=== PATIENT | female | born 1960 | race Caucasian/White ===

== ENCOUNTER 2025-04-04 12:43 | Emergency (ER) | payer OTHER, SELFPAY ==
[2025-04-04 12:51] VITALS: BP 141/81
[2025-04-04 13:14] LABS: Hematocrit 41.2 % (37.0-47.0); Hemoglobin 14.4 g/dL (12.0-16.0); Mean Corp Hgb Conc. 35.0 g/dL (33.0-37.0); Mean Corpuscular Volume 83.9 fL (81.0-99.0); Nucleated Red Blood Cells % 0 %; Platelet Count 258 10^3/uL (130-400); Red Cell Dist. Width 13.6 % (11.5-14.5)
[2025-04-04 13:29] LABS: ALT (SGPT) 21 U/L (0-35); AST (SGOT) 21 U/L (14-36); Albumin 4.6 g/dl (3.5-5.0); Alkaline Phosphatase 80 U/L (38-126); Blood Urea Nitrogen 19 mg/dl (7-17); Calcium 9.4 mg/dl (8.4-10.2); Carbon Dioxide 24 mmol/L (22-30); Chloride 104 mmol/L (98-107); Glucose 119 mg/dl (70-99); Lipase 85 U/L (23-300); Potassium 4.4 mmol/L (3.5-5.1); Sodium 133 mmol/L (135-145); Total Protein 7.8 g/dl (6.3-8.2); eGFR > 60.00
[2025-04-04 13:37] LABS: Troponin I < 0.012 ng/ml
--- NOTE | 2025-04-04 15:06 | ED.GENMED ---
History of Present Illness
General
Chief Complaint: Cardiac Symptoms
Source: patient
Exam Limitations: none
Time Seen by Provider: 04/04/25 15:05
History of Present Illness
History of Present Illness:
65yoF with a history of obesity and migraines presenting for evaluation of chest pain. Patient woke up this morning around 6am not feeling well. She reports nausea, vomiting, and chest discomfort. She vomited 4 times this morning. Her chest
discomfort worsens right before vomiting and improves slightly afterwards. She describes a pressure sensation that radiates throughout her chest which is currently rated as a 4/10 in severity. She denies any shortness of breath, pleuritic pain,
dizziness, syncope, diaphoresis. Patient ate dinner at a restaurant last night. No personal or family history of heart disease. No tobacco use.
Phy Exam
General Physical Exam
General Presentation: well appearing and no apparent distress
General Skin: warm and dry
General Habitus: normal
General Mental: alert
ENT Exam
ENT Exam: normocephalic
Cardiovascular Exam
Cardiovascular Exam: regular rate/rhythm, no edema, no murmur and normal peripheral pulses (2+ radial and DP pulses bilaterally)
Pulmonary Exam
Pulmonary Exam: lungs clear, no respiratory distress, no rales, no crackles, no rhonchi and other (+Tenderness to chest wall bilaterally)
Neurological Exam
Neurological Exam: alert
Barb Coma Scale
Eye Opening: Spontaneous
Verbal Response: Oriented
Motor Response: Obeys Commands
GCS Total Score: 15
Skin Exam
Skin Exam: normal color and warm/dry
Psychiatric Exam
Psychiatric Exam: normal mood/affect
Course
Orders/Labs/Results
Orders:
Orders
04/04/25 12:44
Electrocardiogram (*1) Urgent
Reason for Study: Chest Pain
EKG- Treatment ONCE
04/04/25 13:04
Complete Blood Count/With Diff Urgent
Comprehensive Metabolic Panel Urgent
Lipase Urgent
Troponin I Urgent
04/04/25 15:29
Electrocardiogram (*1) Urgent
Reason for Study: Chest Pain
Cardiac Monitoring- Treatment ONCE
EKG- Treatment ONCE
CR Chest - 2 Views Urgent
Comment:
Reason For Exam: CP
04/04/25 16:03
Troponin I Urgent
Abnormal Lab Results
04/04/25
13:04
WBC 12.4 H 10^3/uL
(4.8-10.8)
MPV 11.3 H fL
(7.4-10.4)
Absolute Neuts (auto) 8.6 H 10^3/uL
(1.4-6.5)
Absolute Monos (auto) 0.8 H 10^3/uL
(0.1-0.6)
Sodium 133 L mmol/L
(135-145)
BUN 19 H mg/dl
(7-17)
Glucose 119 H mg/dl
(70-99)
04/04/25 13:04
04/04/25 13:04
Vital Signs
Initial and Last Documented VS:
Initial Vital Signs
Temp Pulse Resp BP Pulse Ox
98.3 F 76 16 141/81 96
04/04/25 12:51 04/04/25 12:51 04/04/25 12:51 04/04/25 12:51 04/04/25 12:51
Last Documented Vital Signs
Temp Pulse Resp BP Pulse Ox
97.9 F 66 13 133/78 99
04/04/25 16:43 04/04/25 16:00 04/04/25 16:00 04/04/25 15:46 04/04/25 16:00
MDM/Problems Addressed
Differential Diagnosis Includes:
65yoF here with chest pain. Woke up with n/v this morning. C/o pressure throughout chest. Reproducible chest wall tenderness on exam. VSS. She is well-appearing no distress. Differential diagnosis includes but is not limited to:
Costochondritis/musculoskeletal, pleurisy, esophagitis, Boerhaave syndrome, ACS
Initial ED plan: Workup initiated in triage. EKG shows subtle T wave changes in lateral leads. Troponin undetectable. Will check delta troponin/EKG and CXR.
*Pulse Oximetry
SaO2: 96
Oxygen Mode of Delivery: Room air
Patient hypoxic: no
*EKG
Interpreted by ED Provider?: Yes
EKG Intrepretation Date: 04/04/25
Heart Rate: 67
Rate: normal
Rhythm: sinus
[place]: normal axis
Interval: normal interval
QRS Pattern: normal QRS
Ischemia: other (nonspecific T wave changes in lateral leads)
*Critical Care Note
Total Time (30-74mins, 75-104mins- exclusive of procedures): Not Applicable
Update Note
Update Note:
Repeat EKG looks improved and troponin remains undetectable. Chest x-ray clear. Patient feeling improved on reassessment. She is stable for discharge. Advised close follow-up with PCP and strict ED return precautions reviewed. Patient in
agreement with plan and she left in stable condition.
ED Attending Note
-
Portions of this chart may have been created with voice recognition software.� Occasional wrong word or��sound alike� substitutions may have occurred due to the inherent limitations of voice recognition software.
Discharge Plan
Departure
Patient Disposition: Home (Routine Discharge)
Date of Disposition: 04/04/25
Time of Disposition: 17:23
Patient with high blood pressure during this ER visit?: No
Discharge Problem:
Chest pain
Instructions: Chest Pain (DC)
Prescriptions:
No Action
ciprofloxacin HCl 500 mg tablet
500 mg PO BID 7 Days Qty: 14 0RF
metronidazole 500 mg tablet
500 mg PO TID 7 Days Qty: 21 0RF
Referrals:
Catrachito Thornton MD [Family Provider]
Activity Restrictions/Additional Instructions:
Please call your family doctor tomorrow to schedule a follow-up appointment. Return to the ER immediately with any new or worsening symptoms.
Interventions
Interventions:
*Risk Screen - Suicide Last Done: 04/04/25 15:43
*General Assessment Last Done: 04/04/25 15:42
*Neglect/Abuse Screening Last Done: 04/04/25 15:43
*ED- Fall Risk Assessment Last Done: 04/04/25 15:43
*ED COVID-19 Vaccine History Last Done: 04/04/25 15:43
*ED Influenza Vaccine History Last Done: 04/04/25 15:43
YL-Ioldfg-Vvnugeycyj Assessment Last Done: 04/04/25 15:47
ED- Cardiac Assessment Last Done: 04/04/25 15:44
ED- Pulmonary Assessment Last Done: 04/04/25 15:45
Discharge Date and Time
Discharge Date/Time: 04/04/25 17:44
Print Language: DIVEHI
[2025-04-04 15:41] VITALS: BMI 37.1
[2025-04-04 15:46] VITALS: BP 133/78
[2025-04-04 17:20] LABS: Troponin I < 0.012 ng/ml
== END 2025-04-04 17:44 | disposition home or self-care (01) ==
LOC: EMR 12:43
PROVIDERS: Emergency Medicine; Physician Assistant; EMERGENCY PHYSICIAN Emergency Medicine; FAMILY PHYSICIAN Internal Medicine
DX: R07.89 Other chest pain (principal); R11.2 Nausea with vomiting, unspecified; E66.9 Obesity, unspecified; G43.909 Migraine, unspecified, not intractable, without status migrainosus; Z91.041 Radiographic dye allergy status; Z88.0 Allergy status to penicillin; Z91.013 Allergy to seafood; Z91.018 Allergy to other foods
CPT/HCPCS: 99283; 71046; 80053; 83690; 84484; 85025; 93005

== ENCOUNTER 2025-04-05 23:23 | Observation (INO) | payer OTHER, SELFPAY ==
[2025-04-05 17:50] VITALS: BP 163/90
[2025-04-05 18:16] LABS: Hematocrit 42.3 % (37.0-47.0); Hemoglobin 14.9 g/dL (12.0-16.0); Mean Corp Hgb Conc. 35.2 g/dL (33.0-37.0); Mean Corpuscular Volume 82.9 fL (81.0-99.0); Nucleated Red Blood Cells % 0 %; Platelet Count 271 10^3/uL (130-400); Red Cell Dist. Width 13.6 % (11.5-14.5)
[2025-04-05 18:32] LABS: ALT (SGPT) 21 U/L (0-35); AST (SGOT) 19 U/L (14-36); Albumin 5.2 g/dl (3.5-5.0); Alkaline Phosphatase 90 U/L (38-126); Blood Urea Nitrogen 22 mg/dl (7-17); Calcium 10.1 mg/dl (8.4-10.2); Carbon Dioxide 24 mmol/L (22-30); Chloride 103 mmol/L (98-107); Glucose 132 mg/dl (70-99); Lipase 87 U/L (23-300); Potassium 4.1 mmol/L (3.5-5.1); Sodium 140 mmol/L (135-145); Total Protein 8.8 g/dl (6.3-8.2); eGFR > 60.00
[2025-04-05 19:44] VITALS: BMI 35.8
--- NOTE | 2025-04-05 19:49 | ED.GENMED ---
History of Present Illness
General
Chief Complaint: Abdominal Symptoms
Source: patient and records
Exam Limitations: none
Time Seen by Provider: 04/05/25 19:22
Nursing documentation reviewed up to this point in time: agreed with
History of Present Illness
History of Present Illness:
65 female returns abdominal pain nausea vomiting seen here yesterday with nausea vomiting chest pain discharged home no fever or chills, no prior abdominal surgeries, saw her PCP with vomiting referred here, states she feels thirsty some pain in her
mid upper abdomen, feels like she has a migraine headache which she gets frequently she seeks Botox, was on a GLP-1 previously not recently
Past History
Past History
ED Past Surgical History: Negative Appendectomy, Bowel resection or Cardiac
Social History
Tobacco: Non-smoker
Alcohol: None
Drug: None
Personal:
Living: with family
Employment: Employed
Review of Systems
Review of Systems
All Other Systems: Not applicable
Constitutional: Denies fever or fatigue
EENT: Reports no symptoms
Respiratory: Reports no symptoms
Cardiac: Denies chest pain
ABD/GI: Reports abdominal pain, nausea and vomiting; Denies diarrhea
: Reports no symptoms
Musculoskeletal: Reports no symptoms
Neurological: Reports headache
Endocrine: Reports no symptoms
Phy Exam
Physical Exam
Physical Exam:
Physical Exam
General: 65 female looks uncomfortable
Neck: Dry lip
Heart: s1/s2 regular rate and rhythm, no murmur. equal radial pulses.
Lungs: no acute respiratory distress. clear bilaterally
Abdomen tender in the epigastrium left greater than right lower
Neuro: alert and oriented. no focal neurological deficits
Skin: no rash
Psychiatric: well kept. interactive and cooperative
Extremities: no edema. no calf tenderness. negative homans. good distal pulses
Course
Orders/Labs/Results
Orders:
Orders
04/05/25 18:03
CMP [Comprehensive Metabolic Panel] Urgent
Complete Blood Count/With Diff Urgent
Lipase Urgent
04/05/25 19:43
Electrocardiogram (*1) Urgent
Reason for Study: Abdominal Pain
EKG- Treatment ONCE
HYDROmorphone [Dilaudid] 1 mg IV NOW STA
Ondansetron Injectable [Zofran] 4 mg IV NOW STA
US Abdomen Complete/Upper Urgent
Comment:
Reason For Exam: paoin vomitng
04/05/25 19:44
0.9% Sodium Chloride 1000 ml [Nss] 1,000 ml IV BOLUS
04/05/25 19:52
Iohexol [Omnipaque] See Protocol PO NOW STA
04/05/25 19:55
Troponin I Urgent
04/05/25 20:02
CT Abd/pelvis W Iv Cont Urgent
Comment:
Reason For Exam: pain vomitign-getting steroid prep
Diphenhydramine [Benadryl] 50 mg IV NOW STA
Hydrocortisone Sod Succinate [Solu-Cortef] 100 mg IV NOW STA
04/05/25 22:26
0.9% Sodium Chloride 1000 ml [Nss] 1,000 ml IV BOLUS
04/05/25 22:54
LevoFLOXacin 500 MG/100 ML [Levaquin] 500 mg in 100 ml IV NOW
04/05/25 22:55
MetroNIDAZOLE 500 MG/100 ML [Flagyl 500 mg] 100 ml IV NOW
04/05/25 22:58
MetroNIDAZOLE 500 MG/100 ML [Flagyl 500 mg] 100 ml IV NOW
Sulfamethox./Trimethoprim Ds [Bactrim Ds 800 mg/160 mg] 1 tablet PO NOW STA
Abnormal Lab Results
04/05/25
18:03
WBC 16.6 H 10^3/uL
(4.8-10.8)
MPV 11.3 H fL
(7.4-10.4)
Abs Immat Gran (auto) 0.1 H 10^3/uL
(0-0.05)
Absolute Neuts (auto) 13.2 H 10^3/uL
(1.4-6.5)
Absolute Monos (auto) 1.0 H 10^3/uL
(0.1-0.6)
Neutrophils % 79.6 H %
(42.2-75.2)
Lymphocytes % 13.6 L %
(20.5-51.1)
BUN 22 H mg/dl
(7-17)
Glucose 132 H mg/dl
(70-99)
Total Bilirubin 1.9 H mg/dl
(0.2-1.3)
Total Protein 8.8 H g/dl
(6.3-8.2)
Albumin 5.2 H g/dl
(3.5-5.0)
04/05/25 18:03
04/05/25 18:03
Vital Signs
Initial and Last Documented VS:
Initial Vital Signs
Temp Pulse Resp BP Pulse Ox
97.9 F 88 16 163/90 98
04/05/25 17:50 04/05/25 17:50 04/05/25 17:50 04/05/25 17:50 04/05/25 17:50
Last Documented Vital Signs
Temp Pulse Resp BP Pulse Ox
98.0 F 58 18 106/66 97
04/05/25 21:11 04/05/25 21:11 04/05/25 21:11 04/05/25 21:11 04/05/25 21:11
MDM/Problems Addressed
Differential Diagnosis Includes:
Gastritis, biliary colic pancreatitis appendicitis less likely obstruction
MDM/Problems Addressed:
Abdominal pain
Chronic conditions affecting care:
Migraine
Acute Exacerbation and/or Progression of Chronic Illness:
Migraine
*Radiology
Radiology exam reviewed: preliminary read by ED provider
*Pulse Oximetry
SaO2: 98
Oxygen Mode of Delivery: Room air
Patient hypoxic: no
*Critical Care Note
Total Time (30-74mins, 75-104mins- exclusive of procedures): Not Applicable
ED Attending Note
-
Portions of this chart may have been created with voice recognition software.� Occasional wrong word or��sound alike� substitutions may have occurred due to the inherent limitations of voice recognition software.
Discharge Plan
Departure
Patient Disposition: Admit
Date of Disposition: 04/05/25
Time of Disposition: 22:58
Admit to: Med/Surg
Presentation/result/management discussed w/ accepting MD/DO: Hospitalist
Patient with high blood pressure during this ER visit?: No
Condition: Good
Discharge Problem:
Diverticulitis
Prescriptions:
No Action
ciprofloxacin HCl 500 mg tablet
500 mg PO BID 7 Days Qty: 14 0RF
metronidazole 500 mg tablet
500 mg PO TID 7 Days Qty: 21 0RF
Referrals:
Catrachito Thornton MD [Family Provider]
Interventions
Interventions:
*Risk Screen - Suicide Last Done: 04/05/25 17:50
*General Assessment Last Done: 04/05/25 20:26
*Neglect/Abuse Screening Last Done: 04/05/25 17:50
*ED- Fall Risk Assessment Last Done: 04/05/25 20:26
*ED COVID-19 Vaccine History Last Done: 04/05/25 20:26
*ED Influenza Vaccine History Last Done: 04/05/25 20:26
XI-Tjpwtj-Iztmlbaixq Assessment Last Done: 04/05/25 20:26
Discharge Date and Time
Print Language: AZERI
[2025-04-05] MEDS: NSS 1000 IV ×2 (19:56→22:30)
[2025-04-05] MEDS: ZOFRAN 4 MG IV (20:07)
[2025-04-05] MEDS: DILAUDID 1 MG IV (20:09)
[2025-04-05] MEDS: BENADRYL 50 MG IV (20:11)
[2025-04-05] MEDS: SOLU-CORTEF 100 MG IV (20:15)
[2025-04-05 20:35] LABS: Troponin I < 0.012 ng/ml
[2025-04-05 21:05] VITALS: BP 106/66
[2025-04-05 21:11] VITALS: BP 106/66
--- NOTE | 2025-04-05 22:55 | W.PN.UPDATE ---
Update Note
Progress Note Update
This note serves as an addendum to the H&P by legal officer NANDINI�
Jolene SUNSHINE
HPI
65F return visit to ER with abdominal pain nausea vomiting
She was seen here yesterday with nausea vomiting chest pain discharged home
- HX uncomplicated diverticulitis treated with ABx 1 yr ago
- no fever or chills
- no prior abdominal surgeries
- saw her PCP with vomiting referred here
- some pain in her mid upper abdomen
- was on a GLP-1 previously not recently
Relevant VS
Temp Pulse Resp BP Pulse Ox
98.0 F 58 18 106/66 97
04/05/25 21:11 04/05/25 21:11 04/05/25 21:11 04/05/25 21:11 04/05/25 21:11
PE
Gen: Class II Obesity BMI 35
HEENT: anicteric
Neck: supple
Lungs: CTA
Cor:RRR S1 S2
Abdomen:�LLQ tenderness on deep palpation
Psych; anxious
Relevant data�
04/05/25
18:03
WBC 16.6 H
BUN 22 H
Creatinine 0.9
eGFR > 60.00
Total Bilirubin 1.[address]/pelvis W Iv Cont
- Findings suspicious for minor proximal sigmoid diverticulitis.
No perforation or abscess.
- Mild hepatomegaly with mild fatty infiltration.
- The appendix is normal.
- No obstructive uropathy.
No prior hospitalist admission:
ASSESSMENT & PLAN
Acute uncomplicated proximal sigmoid diverticulitis.
Second visit to ER
First episode of diverticulitis 1yr ago
HX PCN allergy
- No perforation
- IV LVQ and Flagyl
- NPO except sips
- PRN Analgesia and anti emetics
DVT Px: SCD
Full code
IP MS
--- NOTE | 2025-04-05 23:17 | HPS.HSE ---
Family Physician
-
Family Physician: Catrachito Thornton
Chief Complaint
-
Persistent Vomiting
History of Present Illness
Patient is a 65 y/o female past medical history of migraine headaches who presents with persistent vomiting. Patient reports she developed vomiting yesterday morning. She reports some left lower quadrant abdominal pain which resolved after several
episodes of vomiting. She was seen at the [facility] ED yesterday due to complaints of chest heaviness associated with the vomiting. She had a negative cardiac work-up and was discharged home. She attempted to eat last night and developed recurrent
vomiting. She saw her PCP earlier today who referred her to the emergency department for evaluation. Patient denies any fevers, sweats or chills.
Medical History
Past Medical History
Past Medical History: Reports Other
Additional Past Medical History:
Migraine Headache
Past Surgical History: Reports Other
Additional Past Surgical History:
Right Ankle ORIF with subsequent hardware removal
Social History
Tobacco: Non-smoker
Alcohol: Occasional (Social)
Family History
Family History: Not pertinent
Allergies / Home Medications
Allergies reflects when Allergies were last updated in [facility].
Home Medications with original date entered in [facility]
Allergy/Medication List:
Allergies
Allergy/AdvReac Type Severity Reaction Status Date / Time
Iodinated Contrast Media Allergy has not Verified 04/04/25 12:54
had, but
she lists
it due to
shrimp
allergy
Penicillins Allergy Unknown Verified 04/04/25 12:53
shrimp Allergy Hives Verified 04/04/25 12:54
strawberry Allergy Unknown Verified 04/04/25 12:53
Home Medications
No Meds [No Current Medications] 04/05/25
Review of Systems
-
History Source: Patient
A 12 point ROS was completed and negative except as noted: Yes
Constitutional: Denies Fever or Chills
Respiratory: Denies Cough or Trouble Breathing
Cardiac: Reports Chest Pain; Denies Palpitations
Abdomen/GI: Reports See HPI, Abdominal Pain, Nausea and Vomiting; Denies Diarrhea or Constipated (Last bowel movement yesterday morning)
Physical Exam
Vital Signs
Vital Signs
Temp Pulse Resp BP Pulse Ox
98.0 F 58 18 106/66 97
04/05/25 21:11 04/05/25 21:11 04/05/25 21:11 04/05/25 21:11 04/05/25 21:11
Physical Exam
General: Comfortable and Conversant
HEENT: Anicteric and Moist mucous membranes
Respiratory: Clear and Non Labored Respirations
Cardiac: S1/S2 and Regular Rhythm; No Tachycardia
GI: Soft and Tender (LLQ tenderness without rebound or guarding)
Rectal: Other
Genito-urinary: Clear Urine
Musculoskeletal: No Clubbing, No Cyanosis and No Edema
Skin: Warm and Dry
Neuro: Awake, Alert, Oriented and Nonfocal/grossly intact
Psych: Calm
Laboratory Results
-
04/05/25 18:03
04/05/25 18:03
Laboratory Results
Total Bilirubin 1.9 mg/dl (0.2-1.3) H 04/05/25 18:03
AST 19 U/L (14-36) 04/05/25 18:03
ALT 21 U/L (0-35) 04/05/25 18:03
Alkaline Phosphatase 90 U/L (38-126) 04/05/25 18:03
Troponin I < 0.012 ng/ml 04/05/25 19:55
Lipase 87 U/L (23-300) 04/05/25 18:03
Abd/Pelvis CT Scan:
Findings suspicious for minor proximal sigmoid diverticulitis. No perforation or abscess.
Mild hepatomegaly with mild fatty infiltration.
Data Reviewed
-
CT Scan: Report Reviewed by me
Lab Data: Labs Reviewed by me
Impression/Plan
-
Acute Uncomplicated Sigmoid Diverticulitis
-Continue levofloxacin and metronidazole
-Continue NPO with sips/chips
-Continue Dilaudid PRN for pain
DVT proph: SCD
Code Status:Full Code
[2025-04-05 23:49] VITALS: BP 106/69
[2025-04-05] MEDS: FLAGYL 500 MG 100 IV (23:51)
[2025-04-06] VITALS: BP 93/66
[2025-04-06] MEDS: LEVAQUIN 100 IV (00:07)
[2025-04-06 00:40] VITALS: BP 99/53
[2025-04-06 00:47] VITALS: BMI 35.9
[2025-04-06] MEDS: NSS 1000 IV (01:06)
[2025-04-06 06:30] LABS: Hematocrit 34.9 % (37.0-47.0); Hemoglobin 12.5 g/dL (12.0-16.0); Mean Corp Hgb Conc. 35.8 g/dL (33.0-37.0); Mean Corpuscular Volume 85.1 fL (81.0-99.0); Platelet Count 221 10^3/uL (130-400); Red Cell Dist. Width 13.7 % (11.5-14.5)
[2025-04-06 07:24] LABS: Blood Urea Nitrogen 16 mg/dl (7-17); Calcium 8.4 mg/dl (8.4-10.2); Carbon Dioxide 24 mmol/L (22-30); Chloride 108 mmol/L (98-107); Estimated Creatinine Clearance 81 ml/min; Glucose 98 mg/dl (70-99); Potassium 3.6 mmol/L (3.5-5.1); Sodium 140 mmol/L (135-145); eGFR > 60.00
[2025-04-06 07:45] VITALS: BP 99/52
[2025-04-06] MEDS: FLAGYL 500 MG 100 IV ×3 (08:35→23:40)
[2025-04-06 09:19] LABS: Hepatitis C Antibody Negative (Negative)
[2025-04-06] MEDS: MOTRIN 600 MG PO (09:35)
--- NOTE | 2025-04-06 11:58 | CM ---
Initial assessment completed with patient who lives with her in a 2 story plus basement home with B/B on 2nd and 1/2 bath on 1st, 2 steps to enter. [employer] patient was independent in ambulation and ADL's, drives. No DME. No in-home services. No
HC-POA. No VA benefits. No psychiatric hospitalizations. PCP is Dr. Catrachito Thornton. Pharmacy is [facility] in [place]. Discharge POC: Anticipate home with no needs.
[2025-04-06] MEDS: NSS IV (12:15)
--- NOTE | 2025-04-06 12:53 | W.PN.HOSP.TC ---
Today's Communication/Plan
-
Advance diet to full liquid diet
Continue the antibiotics
Assessment / Plan
Assessment / Plan
Acute Uncomplicated Sigmoid Diverticulitis
Resolved per GI symptoms. Improving left lower quadrant tenderness. Improving white count.
-Continue levofloxacin and metronidazole provide. QTc is okay.
- Advance diet to full liquid diet today.
- Patient advised to stay 24 hours as she still has pain and leukocytosis.
DVT proph: SCD
Code Status:Full Code
Anticipated Discharge: Within 24 hours
Subjective/Interval History
-
Date of Service: April 06, 2025
Resolving nausea and emesis. Placed on clear liquid diet which she is tolerating. Abdominal pain still rates 1 out of 10 in the left lower quadrant. No diarrhea. No fever or chills.
She remembers having an episode of diverticulitis 1 to 2 years ago. She never followed up for a colonoscopy. She never had a colonoscopy either.
Objective Data
-
Labs:
Laboratory Results
04/06/25
05:30
WBC 15.9 H
Hgb 12.5
Hct 34.9 L
Plt Count 221
Sodium 140
Potassium 3.6
Chloride 108 H
Carbon Dioxide 24
BUN 16
Creatinine 0.7
Glucose 98
Calcium 8.4 D
Vital Signs:
Vital Signs
Temp Pulse Resp BP Pulse Ox
98.1 F 67 16 99/52 93
04/06/25 07:45 04/06/25 07:45 04/06/25 07:45 04/06/25 07:45 04/06/25 12:11
I&O
04/05/25 04/06/25 04/07/25
06:59 06:59 06:59
Intake Total 700 / 700 300 / 300
Balance 700 / 700 300 / 300
Physical Exam
-
General: No Apparent Distress
Respiratory: Non Labored Respirations; Negative Accessory Resp Muscle Use
Cardiac: Regular Rhythm and S1/S2; Negative Tachycardic
GI: Soft, Nondistended, Normal Bowel Sounds and Tender (in LLQ but no rebound or guarding)
Neuro: AO x 3
Data Reviewed
-
Labs: Labs Reviewed by me
[2025-04-06 15:20] VITALS: BP 105/54
[2025-04-06 23:05] VITALS: BP 113/67
[2025-04-07] MEDS: LEVAQUIN 100 IV (00:37)
[2025-04-07 06:47] LABS: Hematocrit 37.4 % (37.0-47.0); Hemoglobin 13.2 g/dL (12.0-16.0); Mean Corp Hgb Conc. 35.3 g/dL (33.0-37.0); Mean Corpuscular Volume 85.8 fL (81.0-99.0); Platelet Count 217 10^3/uL (130-400); Red Cell Dist. Width 13.6 % (11.5-14.5)
[2025-04-07 07:40] VITALS: BP 109/74
[2025-04-07] MEDS: FLAGYL 500 MG 100 IV (08:59)
--- NOTE | 2025-04-07 10:39 | W.DCSUMMARY ---
Discharge Summary
Discharge Data
Date of Admission: 04/05/25
Date of Discharge: 04/07/25
-
Pending Results: No
Hospital Course
Primary diagnosis:
Acute uncomplicated sigmoid diverticulitis
Secondary diagnosis:
Migraine headaches
Hospital course:
Patient presented with nausea vomiting and left lower quadrant abdominal pain. Diagnosed to have acute uncomplicated sigmoid diverticulitis. She quickly responded to antibiotics with resolution of upper GI symptoms and abdominal pain and was
tolerating a low residue diet. She remembers having another episode of diverticulitis within the last 2 years. She never had colonoscopy. Encouraged her to schedule a colonoscopy 8 weeks after treatment of diverticulitis. Patient was treated
with Levaquin and Flagyl. QTc is okay. She had an altered taste in the mouth today ; if continued then consider switch to different antibiotic regimen than Flagyl. She is allergic to penicillin.
Today she is alert and oriented. Afebrile. Pulse 58, blood pressure 109/74. Denies any abdominal pain. Abdomen soft with subtle discomfort in the left lower quadrant which is much improved compared to admission. No guarding or rigidity. No
diarrhea.
Patient seems stable for discharge. Advised her to watch for fever, worsening of abdominal pain or recurrence of nausea vomiting. If so return to ER or see PCP.
Discharge Plan
-
Patient Disposition: Home (Routine Discharge)
Discharge Diagnosis/Procedures: Acute uncomplicated sigmoid diverticulitis
Diet: Low Residue
Additional Diets: Low residue diet for a week
Activity: As tolerated
Driving Restrictions: As prior to admission
Bathing Restrictions: None
Referrals:
Catrachito Thornton MD [Family Provider] - in less than 1 week
Paris Barraza MD [Active, Gastroenterology] - in one to two months
Referral Note: Call their office to schedule a colonscopy
Prescriptions:
New
levofloxacin 500 mg tablet
500 mg PO DAILY 8 Days Qty: 8 0RF
acetaminophen 325 mg Tablet
650 mg PO Q4HPRN PRN (Reason: mild pain/ fever>100.5F) Qty: 1 0RF
metronidazole 500 mg tablet
500 mg PO TID Qty: 24 0RF
Rx Instructions:
for 8 more days
Discharge Orders:
Discharge Patient (As Directed); Ordered 04/07/25
Ordered By: Morteza Moody
Discharge Date and Time
Print Language: AMHARIC
--- NOTE | 2025-04-07 10:46 | CM ---
Patient has been medically cleared for discharge to home with no additional skilled services. Patient has arranged for transport home.
[2025-04-07 11:28] VITALS: BP 129/86
== END 2025-04-07 11:29 | disposition home or self-care (01) ==
LOC: 2 SOUTH 23:23
PROVIDERS: Physician Assistant Medical; Student in an Organized Health Care Education/Training Program; ADMITTING PHYSICIAN Internal Medicine; ATTENDING PHYSICIAN Internal Medicine; EMERGENCY PHYSICIAN Emergency Medicine; FAMILY PHYSICIAN Internal Medicine
DX: K57.32 Diverticulitis of large intestine without perforation or abscess without bleeding (principal); R10.9 Unspecified abdominal pain; G43.909 Migraine, unspecified, not intractable, without status migrainosus; R11.2 Nausea with vomiting, unspecified; E66.812 Obesity, class 2; R16.0 Hepatomegaly, not elsewhere classified; K76.0 Fatty (change of) liver, not elsewhere classified; R00.1 Bradycardia, unspecified; Z68.35 Body mass index [BMI] 35.0-35.9, adult; Z88.0 Allergy status to penicillin; Z91.041 Radiographic dye allergy status; Z91.013 Allergy to seafood; Z91.018 Allergy to other foods
CPT/HCPCS: 74177; 76700; 80048; 80053; 83690; 84484; 85025; 85027; 86803; 93005; 96361; 96374; 96375; 99285; G0378; Q9967